=== PATIENT | female | born 1975 | race Two or more races ===

== ENCOUNTER 2022-07-20 05:45 | Day surgery (SDC) | payer OTHER ==
[~2022-07-20] VITALS: Ht 157.5 cm; Wt 65.8 kg
[~2022-07-20 05:45] MED LIST: LOSARTAN POTAS100 MG PO; PERCOCET 5/3251 TAB PO
[2022-07-20] MEDS ORDERED: OXYC1TAB9 PO (10:07)
== END 2022-07-20 15:00 | disposition home or self-care (01) ==
LOC: CIR.AMB 05:45
PROVIDERS: ATTEND Surgery
DX: K64.8 Other hemorrhoids (principal); K64.4 Residual hemorrhoidal skin tags; K62.5 Hemorrhage of anus and rectum; Z20.822 Contact with and (suspected) exposure to COVID-19; I10 Essential (primary) hypertension; E78.00 Pure hypercholesterolemia, unspecified